=== PATIENT | female | born 1960 | race Caucasian/White ===

== ENCOUNTER 2025-03-17 12:24 | Observation (INO) ==
[2025-03-17] MEDS: LIDOCAINE 5% 1 PATCH TD STA (13:00)
[2025-03-17] MEDS: ACETAMINOPHEN 1,000 MG/100 ML VIAL IV STA (13:00)
--- NOTE | 2025-03-17 13:09 | XRay Report ---
XR chest 1V portable CLINICAL HISTORY: Trauma COMPARISON STUDY: 12/10/2022 FINDINGS: Heart size and pulmonary vasculature are normal. There is interval elevation of the right h emidiaphragm. No consolidation or pleural effusion seen. No grossly displaced rib fractures seen. Marycruz luation of the lower ribs is limited. IMPRESSION: Interval elevation of the right hemidiaphragm. No other acute findings seen. ACT 112: Negative or not required by law. Electronically signed by: Juan Ulloa M.D. 03/17/2025 1:07 PM
[2025-03-17 13:10] LABS: Hematocrit (blood only) 40.4 % (37.0-47.0); Hemoglobin 14.0 g/dL (12.0-16.0); Immature Granulocytes # (auto) 0.06 K/uL (0.01-0.20); Immature Granulocytes % (auto) 0.5 %; Mean Corpuscular Hemoglobin 31.0 pg (25.0-34.0); Mean Corpuscular Volume 89.6 fL (80.0-100.0); Platelet Count 312 K/uL (130-400); RDW Standard Deviation 44.0 fL (36.4-46.3); Red Blood Count 4.51 M/uL (4.20-5.40); White Blood Count 12.25 K/ul (4.8-10.8)
--- NOTE | 2025-03-17 13:10 | XRay Report ---
XR humerus LT 2V CLINICAL HISTORY: fall COMPARISON: None FINDINGS: There is apparent irregularity on the lateral view at the proximal humerus, possible artif act. No other fracture or dislocation seen at the left humerus. IV is present at the left elbow. IMPRESSION: 1. Likely artifact proximal left humerus. Recommend follow-up views of the left shoulder. 2. Otherwise no fracture seen at the left humerus. ACT 112: Negative or not required by law. Electronically signed by: Juan Ulloa M.D. 03/17/2025 1:09 PM
[2025-03-17] MEDS: OPTIRAY 320 100ml IV ONE (13:15)
[2025-03-17 13:29] LABS: Alanine Aminotransferase 15.0 U/L (7-52); Albumin Globulin Ratio 1.5 (0.9-2); Albumin Level 4.6 gm/dl (3.4-5.0); Alkaline Phosphatase 81.0 U/L (34-104); Anion Gap 12.0 (3-11); Bilirubin,Total 0.5 mg/dl (0.2-1.0); Blood Urea Nitrogen 21.0 mg/dl (6-23); Calcium 10.5 mg/dl (8.6-10.3); Carbon Dioxide 29.0 mmol/L (21-32); Chloride 98.0 mmol/L (98-107); Creatinine Clr Calc Pharmacy 54.3 ml/min; Globulin 3.1 gm/dl (2.5-4.0); Glucose 186.0 mg/dl (70-99(Fasting)); Lipase 24.0 U/L (11-82); Potassium 3.7 mmol/L (3.5-5.1); Sodium 139.0 mmol/L (136-145); Total Protein 7.7 gm/dl (6.0-8.3)
--- NOTE | 2025-03-17 13:39 | CT Scan Report ---
CHEST CT WITH CONTRAST CT DOSE: 2179.41 mGy.cm HISTORY: Acute chest, Trauma TECHNIQUE: Multiaxial CT images of the chest were performed following the IV administration of 94 cc of Optiray. A dose lowering technique was utilized adhering to the principles of ALARA. COMPARISON: CT abdomen and pelvis of same day, chest CT 12/10/2022 FINDINGS: Unremarkable thyroid. No lymphadenopathy. Heart is normal in size without pericardial effus ion. No thoracic aortic aneurysm. Lipomatous hypertrophy of the interatrial septum incidentally noted . Trace left pleural effusion. Punctate calcified granuloma within the left lower lobe. Mild linear s ubsegmental bibasilar atelectasis versus scarring. Mild linear scarring/fibrosis of the right lung ap ex with traction bronchiectasis is new from prior. Central airways are patent. There is a 3.4 cm hypodense focus in the lateral right breast on image 156 with probable adjacent sca rring, improved from prior. CT abdomen and pelvis dictated separately. Acute minimally displaced frac ture of the anterior left third rib. Mild sclerosis of the adjacent anterior left fourth and fifth ri bs. No suspicious bone lesions. 30% anterosuperior compression deformity without retropulsion at T9 i s new from prior as is minimal superior endplate compression of less than 20% fat T11. Mild chronic T 4 and T5 compression deformities. IMPRESSION: 1. Acute 30% T9 compression deformity without retropulsion. 2. Acute minimally displaced fracture of the anterior left third rib with probable additional acute n ondisplaced anterior left fourth and fifth rib fractures. 3. Trace left pleural effusion without pneumothorax. 4. Decreased size of the probable seroma of the right breast. 5. Interval development of right upper lobe postradiation fibrosis with mild bronchiectasis. ACT 112: Negative or not required by law. Electronically signed by: Elpidio Mcclendon M.D. 03/17/2025 1:37 PM
--- NOTE | 2025-03-17 13:40 | CT Scan Report ---
CT SCAN OF THE ABDOMEN AND PELVIS WITH IV CONTRAST CLINICAL HISTORY: Trauma. COMPARISON STUDY: No priors. TECHNIQUE: Following the IV administration of 94 cc of Optiray 320, CT scan of the abdomen and pelvi s is performed from the lung bases to the proximal femora. Images are reviewed in the axial, sagittal , and coronal planes. IV contrast was administered without complication. A dose lowering technique wa s utilized adhering to the principles of ALARA. FINDINGS: Lung bases: The heart is normal in size and without pericardial effusion. There is mild bibasilar sca rring/atelectasis. No airspace consolidation before meals the lung bases. There is trace left pleural effusion. Postsurgical change is suggested in the right breast with a crescentic fluid collection ty pical for seroma. This is best seen on image #20 and measures approximately 7.5 x 2 cm in axial dimen armand. A small hiatal hernia is noted. Liver: The contrast-enhanced liver is normal in size, contour, and attenuation. There is no intrahepa tic biliary ductal dilatation. The hepatic veins and portal veins are patent. Gallbladder: Unremarkable. Spleen: Normal in size and attenuation. Pancreas: Moderately atrophic and grossly unremarkable. Adrenal glands: Unremarkable. Kidneys: The contrast enhanced kidneys are normal in size and without hydronephrosis. The kidneys enh ance symmetrically. There are at least 3 nonobstructing renal calculi which measure up to 4 mm. No le ft renal calculi are seen on this contrast-enhanced examination and no ureteral stone is identified. An 11 mm cyst is noted on the right. Abdominal vasculature: The abdominal aorta is normal in course and caliber. Bowel: There is moderate constipation. No bowel obstruction is seen. The appendix is well-visualized and normal. A 10 mm duodenal lipoma is incidentally noted. Peritoneum: There is no intraperitoneal free air or abdominal ascites. There is a fat-containing umbi lical hernia. Lymphadenopathy: None. Pelvic viscera: The bladder is decompressed and grossly unremarkable. The uterus and adnexa are bhavya l as visualized. Skeletal structures: The skeletal structures are osteopenic. There is an acute superior endplate comp ression fracture of T10 with mild/moderate loss of height. No retropulsion of fragments is seen. The lumbosacral spine, bony pelvis, and proximal femora appear intact. There is avascular necrosis of the left femoral head. No lytic or blastic lesions are seen. There are chronic/healed left posterior rib fractures. There is mild lumbosacral spondylosis. IMPRESSION: 1. There is an acute superior endplate compression fracture of T10 with mild/moderate loss of height. No retropulsion of fragments is seen. 2. No additional acute fracture is identified. 3. There is no evidence of solid organ injury in the abdomen or pelvis. 4. Trace pleural fluid is seen in the left. 5. Postsurgical change is suggest in the right breast with a probable seroma. Correlate clinically. 6. There is avascular necrosis of the left femoral head. 7. Right-sided nephrolithiasis. 8. Additional findings as above. ACT 112: Negative or not required by law. Electronically signed by: Silvio Medina M.D. 03/17/2025 1:39 PM
--- NOTE | 2025-03-17 14:17 | Emergency Department Note ---
Impression & Plan Fall from standing, Compression fracture of T9 vertebra, Compression fracture of T11 vertebra, Multiple rib fractures, Hypercalcemia, Contusion of soft tissue, Musculoskeletal strain ED Provider Note NAME: ISAIAS COON AGE: 64 SEX: F : 1960 ARRIVES VIA: Walk-In INFORMANT: Patient, ED PROVIDER(S): Andrae Jung DO CHIEF COMPLAINT: fall HPI: This was not prehospital trauma/injury alert by EMS as she arrives by POV. This is a 64-year-old female with the PMHx of hypertension, hyperlipidemia, breast cancer s/p chemotherapy, DM2 and postchemotherapy pain presenting to [facility] for further evaluation of fall. Patient is accompanied by her who provide additional history. They are not on blood thinners. They deny head strike or LOC. They deny neck pain. Patient is reporting severe middle back pain. She states is mostly on the left side. Pain now radiating into her upper abdomen. They deny fever or chills. No cough or congestion. Denies chest pain or palpitations. No shortness of breath. They deny abdominal pain, nausea and vomiting. No urinary complaints. No recent changes in bowel movements. Patient denies recent changes in medications or OTC supplements. Patient offers no other complaints, today. ADDITIONAL HISTORY OBTAINED: Per HPI Chronic Medical/Social Conditions Affecting Care: Per HPI PAST MEDICAL HISTORY: See Below PAST SURGICAL HISTORY: See Below FAMILY HISTORY: See Below SOCIAL HISTORY: See Below HOME MEDICATIONS: See Below ALLERGIES: See Below VITALS: See Below PHYSICAL EXAMINATION: Primary Survey Airway: Intact Breathing: Normal, breath sounds equal bilaterally Circulation: Skin warm, distal pulses 2+, capillary refill less than 2 seconds Disability Pupils: Equal and reactive to light, 5mm, brisk GCS: 15, E = 4, V=5, M= 6 Motor Function: Moves all extremities. Sensory: No deficits Secondary Survey GEN: Well developed and well-nourished HENT: Head: No external signs of trauma. No obvious contusions, abrasions, or laceration. No raccoon eyes or gautam sign. Mouth/Throat: No blood within the oral cavity. No malocclusion. Eyes: EOMI. Pupils are 5 mm, round and reactive bilaterally. Ears: TMs are intact bilaterally. No hematomas. Nose: No nasal septal hematoma. No gross deformity. Neck: Collar deferred. No midline C-spine tenderness. No step-offs. Cardiovascular: RRR. Pulses present in all 4 extremities. Pulmonary/Chest: BS equal bilaterally. No tenderness or ecchymosis. Abdomen: No tenderness or ecchymosis. Musculoskeletal: Pelvis: No instability. Back: Lower thoracic midline tenderness. Significant TTP over the posterolateral ribs. No step-offs or deformities. Extremities: No gross deformities. L humeral TTP. Skin: No laceration. No abrasion. Neuro: No focal neurological deficits. GCS as above. Psych: Normal mood and affect. MEDICAL DECISION MAKING: Vitals: The patient is afebrile and HDS. An order was placed for continuous cardiorespiratory monitoring. I reviewed and this shows a rate of 70-80s with regular rhythm. EKG: EKG independently interpreted by me reveals normal sinus rhythm at a ventricular rate of [address] segment changes to suggest STEMI. Intervals are within normal limits. Differential diagnoses include but not limited to multi-system trauma, ICH, skull fracture, spine / spinal cord injury, fracture, dislocation, traumatic abdominal injuries, solid / visceral organ injuries, MSK sprain / strain, contusion, whiplash, concussion In summary, this is a 64yoF who presented as a fall from standing with back and rib pain. Airway intact and self maintained, breath sounds bilateral and equal along with normal effort, circulation intact with pp in 4 extremities, GCS 15 with normal speech and sensorium and DURAN. Full physical examination as above. History and secondary survey as above. Labs drawn. eFAST deferred for WBCT as the patient has readily availability for CT. Collar deferred, no head or neck trauma. Pt was not given tetanus. Initial/stabilizing treatments include IV analgesia and lidocaine patch. Imaging performed and reviewed as above. Patient was taken to the CT suite for CT CAP and dedicated plain films to the humerus. Labs were independently interpreted by me as minimal leukocytosis. No significant anemia. Patient's electrolytes and kidney function are normal. Minimal hyperglycemia. Hypercalcemia similar to prior. LFTs and lipase are normal. CXR independently interpreted by me reveals no evidence of focal consolidation to suggest pna. No large pneumothorax or pleural effusion. No obvious displaced rib fracture. she is to had some improvement in her pain from above therapeutics but again developed worsening pain. Second dose of IV fentanyl ordered. CT chest, abdomen and pelvis were obtained. The patient has multiple traumatic injuries. The patient does have acute T9 and T11 compression deformities. Less than 50% loss of height. There is no retropulsion and she is neurovascularly intact. Patient is not requiring any interventions for this fracture. T9 does appear worse than T11. I do not visualize T10 fracture denoted by radiology. There is a minimally displaced fracture of the third rib. There are nondisplaced rib fractures of the 4th and 5th on the left. This does correlate with her physical examination. Patient has no evidence of pneumothorax. There is a slight pleural effusion which is unknown etiology. Could be a very small hemothorax but favor a physiologic pleural effusion or chronic appearance. Patient requires respiratory hygiene and pain medications as an inpatient. She is high risk for decompensation. I did offer the patient outpatient management but felt that inpatient is warranted. Patient agreeable to this. The patient's complex injuries include fall from standing with T9 and T11 compression fractures as well as 3 left-sided rib fractures. Based on the patient's age, code existing illnesses, exam and lab findings, the decision to treat as an inpatient was made. They received the medications, treatments, interventions indicated above and their condition remained guarded. I discussed my findings with the patient and their family[] and they understand and agree with the treatment plan. All patient / family questions were answered to their satisfaction. Consults/Care Managements Discussions: Per [facility] ER treatment provided: See above Procedures: None Critical Care: None The chart was completed utilizing [employer] Speech voice recognition software. Grammatical errors, random word insertions, pronoun errors, and incomplete sentences are an occasional consequence of this system due to software limitations, ambient noise, and hardware issues. Any formal questions or concerns about the content, text, or information contained within the body of this dictation should be directly addressed to the physician for clarification. Past Med/Surg History Problem List (Updated 03/17/25 @ 14:58 by Andrae Jung DO) Musculoskeletal strain (Acute) Contusion of soft tissue (Acute) Hypercalcemia (Acute) Multiple rib fractures (Acute) Compression fracture of T11 vertebra (Acute) Compression fracture of T9 vertebra (Acute) Fall from standing (Acute) Wedge compression fracture of T9-T10 vertebra, initial encounter for closed fracture Fall Malignant neoplasm of upper-outer quadrant of right breast in female, estrogen receptor positive (Chronic 02/21/22) Neuropathy Medical History Port-A-Cath in place Hypertension Hyperchloremia Diabetes mellitus Surgical History History of partial mastectomy of right breast Previous back surgery 2012 Dr. Doyle Family History Aunt Cancer Breast Social History Smoking Status: Never smoker Second Hand Exposure: No; Hx Alcohol Use: No Hx Substance Use: No Preferred Language: Mexican Communication Ability: Effective Visual Impairment: Limited Hearing Ability: Normal Beliefs That Will Affect Care: None marital status: Current Living Situation: Spouse current occupational status: retired current occupation: [employer] Feels Safe at Home: Yes Diet: regular during the past year weight has: decreased > 10 lbs Assistive Devices: Contacts, Denture - Upper and Glasses Allergies Allergies Allergy/AdvReac Type Severity Reaction Status Date / Time chlorhexidine Allergy Intermediate SKIN Verified 01/01/25 10:44 IRRITATION/RED BUMPY RASH sulfamethoxazole Allergy Intermediate Rash Verified 01/01/25 10:44 [From Bactrim] trimethoprim [From Bactrim] Allergy Intermediate Rash Verified 01/01/25 10:44 Home Meds Home Medications Medication Instructions Recorded Confirmed cholecalciferol (vitamin D3) 50 50 mcg PO QAM 12/10/22 01/01/25 mcg (2,000 unit) capsule (Vitamin D3) gabapentin 300 mg capsule 600 mg PO QID 12/10/22 01/01/25 letrozole 2.5 mg tablet 2.5 mg PO QAM 12/10/22 01/01/25 lisinopril 10 1 tab PO HS 12/10/22 01/01/25 mg-hydrochlorothiazide 12.5 mg tablet loratadine 10 mg tablet (Claritin) 10 mg PO HS 12/10/22 01/01/25 metformin 500 mg tablet,extended 500 mg PO BID 12/10/22 01/01/25 release 24 hr pseudoephedrine HCl 120 mg 120 mg PO HS 12/10/22 01/01/25 tablet,extended release (Sudafed 12 Hour) calcium carbonate (Calcium 600) 600 mg PO DAILY 02/04/23 01/01/25 acetaminophen 500 mg capsule 1,000 mg PO TID PRN 02/11/23 01/01/25 tramadol 50 mg tablet 50 mg PO Q8H PRN 06/07/23 01/01/25 aspirin 81 mg tablet,delayed 81 mg PO DAILY 12/27/23 01/01/25 release (Adult Aspirin Regimen) atorvastatin 20 mg tablet 20 mg PO QPM 12/27/23 01/01/25 duloxetine 20 mg capsule,delayed 40 mg PO DAILY 12/27/23 01/01/25 release Results & Data (ED) Vital Signs Vital Signs - 24 hr 03/17/25 12:28 03/17/25 13:02 03/17/25 14:19 Pulse Rate 81 Pulse Rate [Finger] 74 Respiratory Rate 20 16 20 Respiratory Effort / Characteristics Non-Labored Spontaneous Respiratory Depth Normal Blood Pressure 118/81 Blood Pressure [Right Arm] 119/76 Blood Pressure Mean 93 Blood Pressure Mean [Right Arm] 90 Pulse Oximetry 97 98 93 Oxygen Delivery Method Room Air Room Air Room Air Sepsis Recent Fever Within 48 Hours No Sepsis New/Unexplained Change in Mental Status N/A Sepsis Action Taken by Nursing No Action Required Laboratory Data 03/17/25 12:53 03/17/25 12:53 Lab Results 03/17/25 03/17/25 Range/Units 12:53 12:58 WBC 12.25 H (4.8-10.8) K/ul RBC 4.51 (4.20-5.40) M/uL Hgb 14.0 (12.0-16.0) g/dL POC Hgb 14.3 (12.0-16.0) g/dl Hct 40.4 (37.0-47.0) % POC Hct 42 (37-47) % MCV 89.6 (80.0-100.0) fL MCH 31.0 (25.0-34.0) pg MCHC 34.7 (32.0-36.0) g/dL RDW Std Deviation 44.0 (36.4-46.3) fL RDW Coeff of Hector 13.5 (11.5-14.5) % Plt Count 312 (130-400) K/uL MPV 10.1 (9.4-12.4) fL Immature Gran % (Auto) 0.5 % Neut % (Auto) 80.1 % Lymph % (Auto) 11.4 % Edwards % (Auto) 6.5 % Eos % (Auto) 1.0 % Baso % (Auto) 0.5 % Neut # (Auto) 9.81 H (1.40-6.50) K/uL Lymph # (Auto) 1.40 (1.20-3.40) K/uL Edwards # (Auto) 0.80 H (0.11-0.59) K/uL Eos # (Auto) 0.12 (0.00-0.50) K/uL Baso # (Auto) 0.06 (0.00-0.20) K/uL Immature Gran # (Auto) 0.06 (0.01-0.20) K/uL POC Sodium 140 (135-144) mmol/L Sodium 139 (136-145) mmol/L POC Potassium 3.6 (3.3-5.0) mmol/L Potassium 3.7 (3.5-5.1) mmol/L POC Chloride 97 L (101-112) mmol/L Chloride 98 (98-107) mmol/L Carbon Dioxide 29 (21-32) mmol/L POC Total CO2 26 (24-31) mmol/L Anion Gap 12 H (3-11) POC Anion Gap 21.0 (16-25) mmol/L POC BUN 22 H (7-18) mg/dl BUN 21 (6-23) mg/dl Creatinine 1.00 (0.6-1.2) mg/dl POC Creatinine 1.0 (0.6-1.3) mg/dl Est Cr Clr Drug Dosing 54.3 ml/min eGFR 62.13 BUN/Creatinine Ratio 21.0 H (10-20) Glucose 186 H (70-99(Fasting)) mg/dl POC Glucose (other) 180 H (70-99) mg/dl Calcium 10.5 H (8.6-10.3) mg/dl POC Ioniz Calcium Ingrid 1.21 (1.12-1.32) mmol/l Total Bilirubin 0.5 (0.2-1.0) mg/dl AST 14 (13-39) U/L ALT 15 (7-52) U/L Alkaline Phosphatase 81 (34-104) U/L Total Protein 7.7 (6.0-8.3) gm/dl Albumin 4.6 (3.4-5.0) gm/dl Globulin 3.1 (2.5-4.0) gm/dl Albumin/Globulin Ratio 1.5 (0.9-2) Lipase 24 (11-82) U/L Administered Medications Discontinued Medications Fentanyl Citrate (Fentanyl Citrate Pf 100 Mcg/2 Ml Vial) 50 mcg IV NOW ONE Stop: 03/17/25 12:41 Last Admin: 03/17/25 13:00 Dose: 50 mcg Documented By: QGV Fentanyl Citrate (Fentanyl Citrate Pf 100 Mcg/2 Ml Vial) 50 mcg IV NOW ONE Stop: 03/17/25 14:09 Last Admin: 03/17/25 14:18 Dose: 50 mcg Documented By: ALINA Acetaminophen (Ofirmev) 1,000 mg in 100 mls @ 400 mls/hr IV NOW STA Stop: 03/17/25 12:54 Last Infusion: 03/17/25 13:48 Dose: Infused Documented By: Admin: 03/17/25 13:00 Dose: 400 mls/hr Documented By: QGV Ioversol (Optiray 320 100ml) 94 ml IV ONCE ONE Stop: 03/17/25 13:16 Last Admin: 03/17/25 13:15 Dose: 94 ml Documented By: LONDON Lidocaine (Lidocaine 5% 1 Patch) 1 patch TD NOW STA Stop: 03/17/25 12:41 Last Admin: 03/17/25 13:00 Dose: 1 patch Documented By: QGV Imaging Data Radiologist's Impression: Abdomen/Pelvis CT 03/17/25 12:40 CT SCAN OF THE ABDOMEN AND PELVIS WITH IV CONTRAST CLINICAL HISTORY: Trauma. COMPARISON STUDY: No priors. TECHNIQUE: Following the IV administration of 94 cc of Optiray 320, CT scan of the abdomen and pelvis is performed from the lung bases to the proximal femora. Images are reviewed in the axial, sagittal, and coronal planes. IV contrast was administered without complication. A dose lowering technique was utilized adhering to the principles of ALARA. FINDINGS: Lung bases: The heart is normal in size and without pericardial effusion. There is mild bibasilar scarring/atelectasis. No airspace consolidation before meals the lung bases. There is trace left pleural effusion. Postsurgical change is suggested in the right breast with a crescentic fluid collection typical for seroma. This is best seen on image #20 and measures approximately 7.5 x 2 cm in axial dimension. A small hiatal hernia is noted. Liver: The contrast-enhanced liver is normal in size, contour, and attenuation. There is no intrahepatic biliary ductal dilatation. The hepatic veins and portal veins are patent. Gallbladder: Unremarkable. Spleen: Normal in size and attenuation. Pancreas: Moderately atrophic and grossly unremarkable. Adrenal glands: Unremarkable. Kidneys: The contrast enhanced kidneys are normal in size and without hydronephrosis. The kidneys enhance symmetrically. There are at least 3 nonobstructing renal calculi which measure up to 4 mm. No left renal calculi are seen on this contrast-enhanced examination and no ureteral stone is identified. An 11 mm cyst is noted on the right. Abdominal vasculature: The abdominal aorta is normal in course and caliber. Bowel: There is moderate constipation. No bowel obstruction is seen. The appendix is well-visualized and normal. A 10 mm duodenal lipoma is incidentally noted. Peritoneum: There is no intraperitoneal free air or abdominal ascites. There is a fat-containing umbilical hernia. Lymphadenopathy: None. Pelvic viscera: The bladder is decompressed and grossly unremarkable. The uterus and adnexa are normal as visualized. Skeletal structures: The skeletal structures are osteopenic. There is an acute superior endplate compression fracture of T10 with mild/moderate loss of height. No retropulsion of fragments is seen. The lumbosacral spine, bony pelvis, and proximal femora appear intact. There is avascular necrosis of the left femoral head. No lytic or blastic lesions are seen. There are chronic/healed left posterior rib fractures. There is mild lumbosacral spondylosis. IMPRESSION: 1. There is an acute superior endplate compression fracture of T10 with mild/moderate loss of height. No retropulsion of fragments is seen. 2. No additional acute fracture is identified. 3. There is no evidence of solid organ injury in the abdomen or pelvis. 4. Trace pleural fluid is seen in the left. 5. Postsurgical change is suggest in the right breast with a probable seroma. Correlate clinically. 6. There is avascular necrosis of the left femoral head. 7. Right-sided nephrolithiasis. 8. Additional findings as above. ACT 112: Negative or not required by law. Electronically signed by: Silvio Medina M.D. 03/17/2025 1:[address] 03/17/25 12:[address] WITH CONTRAST CT DOSE: 2179.41 mGy.cm HISTORY: Acute chest, Trauma TECHNIQUE: Multiaxial CT images of the chest were performed following the IV administration of 94 cc of Optiray. A dose lowering technique was utilized adhering to the principles of ALARA. COMPARISON: CT abdomen and pelvis of same day, chest CT 12/10/2022 FINDINGS: Unremarkable thyroid. No lymphadenopathy. Heart is normal in size without pericardial effusion. No thoracic aortic aneurysm. Lipomatous hypertrophy of the interatrial septum incidentally noted. Trace left pleural effusion. Punctate calcified granuloma within the left lower lobe. Mild linear subsegmental bibasilar atelectasis versus scarring. Mild linear scarring/fibrosis of the right lung apex with traction bronchiectasis is new from prior. Central airways are patent. There is a 3.4 cm hypodense focus in the lateral right breast on image 156 with probable adjacent scarring, improved from prior. CT abdomen and pelvis dictated separately. Acute minimally displaced fracture of the anterior left third rib. Mild sclerosis of the adjacent anterior left fourth and fifth ribs. No suspicious bone lesions. 30% anterosuperior compression deformity without retropulsion at T9 is new from prior as is minimal superior endplate compression of less than 20% fat T11. Mild chronic T4 and T5 compression deformities. IMPRESSION: 1. Acute 30% T9 compression deformity without retropulsion. 2. Acute minimally displaced fracture of the anterior left third rib with probable additional acute nondisplaced anterior left fourth and fifth rib fractures. 3. Trace left pleural effusion without pneumothorax. 4. Decreased size of the probable seroma of the right breast. 5. Interval development of right upper lobe postradiation fibrosis with mild bronchiectasis. ACT 112: Negative or not required by law. Electronically signed by: Elpidio Mcclendon M.D. 03/17/2025 1:37 PM Chest X-Ray 03/17/25 12:40 XR chest 1V portable CLINICAL HISTORY: Trauma COMPARISON STUDY: 12/10/2022 FINDINGS: Heart size and pulmonary vasculature are normal. There is interval elevation of the right hemidiaphragm. No consolidation or pleural effusion seen. No grossly displaced rib fractures seen. Evaluation of the lower ribs is limited. IMPRESSION: Interval elevation of the right hemidiaphragm. No other acute findings seen. ACT 112: Negative or not required by law. Electronically signed by: Juan Ulloa M.D. 03/17/2025 1:07 PM Humerus X-Ray 03/17/25 12:40 XR humerus LT 2V CLINICAL HISTORY: fall COMPARISON: None FINDINGS: There is apparent irregularity on the lateral view at the proximal humerus, possible artifact. No other fracture or dislocation seen at the left humerus. IV is present at the left elbow. IMPRESSION: 1. Likely artifact proximal left humerus. Recommend follow-up views of the left shoulder. 2. Otherwise no fracture seen at the left humerus. ACT 112: Negative or not required by law. Electronically signed by: Juan Ulloa M.D. 03/17/2025 1:09 PM Discharge Plan Visit Data Chief Complaint: Fall Stated Complaint: FALL IN PAIN ED Provider: Andrae Jung Discharge Problem: Fall from standing, Compression fracture of T9 vertebra, Compression fracture of T11 vertebra, Multiple rib fractures, Hypercalcemia, Contusion of soft tissue, Musculoskeletal strain Patient Disposition: Admitted As Inpatient Condition: Fair Forms Stand Alone Forms: My [facility] Prescriptions Prescriptions: No Action tramadol 50 mg tablet 50 mg PO Q8H PRN calcium carbonate [Calcium 600] 600 mg calcium (1,500 mg) tablet 600 mg PO DAILY acetaminophen 500 mg capsule 1,000 mg PO TID PRN atorvastatin 20 mg tablet 20 mg PO QPM aspirin [Adult Aspirin Regimen] 81 mg tablet,delayed release (DR/EC) 81 mg PO DAILY duloxetine 20 mg capsule,delayed release(DR/EC) 40 mg PO DAILY pseudoephedrine HCl [Sudafed 12 Hour] 120 mg Tablet Extended Release 120 mg PO HS gabapentin 300 mg capsule 600 mg PO QID lisinopril-hydrochlorothiazide 10-12.5 mg tablet 1 tab PO HS letrozole 2.5 mg tablet 2.5 mg PO QAM metformin 500 mg Tablet Extended Release 24 Hr 500 mg PO BID loratadine [Claritin] 10 mg Tablet 10 mg PO HS cholecalciferol (vitamin D3) [Vitamin D3] 50 mcg (2,000 unit) Capsule 50 mcg PO QAM Referrals Referrals: Lidia Mast, [Primary Care Provider] -
--- NOTE | 2025-03-17 14:39 | History & Physical Report ---
Date of Service March 17, 2025 Assessment & Plan (1) Fall: (2) Wedge compression fracture of T9-T10 vertebra, initial encounter for closed fracture: (3) Malignant neoplasm of upper-outer quadrant of right breast in female, estrogen receptor positive: (4) Diabetes mellitus: (5) Hypertension: Plan Patient has a history of neuropathy following chemotherapy and radiation therapy from her breast cancer treatment. Presents to the hospital following a mechanical fall. 1. T9-T10 compression fracture: Patient sustained nondisplaced fracture of T9-T10 Likely not going to need any surgical intervention however may need a brace Will defer to spine surgery Continue pain management, lidocaine patch, morphine, Tylenol Physical therapy 2. Breast cancer: Status post chemoradiation therapy Estrogen sensitive Continue letrozole 3. Hypertension: Blood pressure is under good control At home on lisinopril and hydrochlorothiazide Continue. 4. Type 2 diabetes: Blood glucose under good control On metformin at home, hold Start insulin sliding scale Full code DVT prophylaxis Lovenox History of Present Illness Chief Complaint: Fall Primary Care Provider: Lidia Mast, This is a 64-year-old female with a history of breast cancer status post chemoradiation therapy, neuropathy, hypertension, diabetes, who presents to the hospital today following a fall. According to the patient, due to her neuropathy she had some loss of sensation on her legs and yesterday was trying to fish bait picker her 22 pound dog she lost her balance and bumped into the kitchen counter on her back and fell on her buttocks. She experienced some pain but thought the pain was going to go away however the pain got worse so she decided to come to the hospital today for further evaluation. Upon arrival to the emergency department, CT scan of the chest and abdomen showed evidence of a compression fracture of T9 and T10 and also some rib fractures on the left side. Due to need for pain control patient will be admitted to the hospital for further management. Allergies Allergy/AdvReac Type Severity Reaction Status Date / Time chlorhexidine Allergy Intermediate SKIN Verified 01/01/25 10:44 IRRITATION/RED BUMPY RASH sulfamethoxazole Allergy Intermediate Rash Verified 01/01/25 10:44 [From Bactrim] trimethoprim [From Bactrim] Allergy Intermediate Rash Verified 01/01/25 10:44 Home Medications Medication Instructions Recorded Confirmed Type cholecalciferol (vitamin D3) 50 50 mcg PO QAM 12/10/22 01/01/25 History mcg (2,000 unit) capsule (Vitamin D3) gabapentin 300 mg capsule 600 mg PO QID 12/10/22 01/01/25 History letrozole 2.5 mg tablet 2.5 mg PO QAM 12/10/22 01/01/25 History lisinopril 10 1 tab PO HS 12/10/22 01/01/25 History mg-hydrochlorothiazide 12.5 mg tablet loratadine 10 mg tablet (Claritin) 10 mg PO HS 12/10/22 01/01/25 History metformin 500 mg tablet,extended 500 mg PO BID 12/10/22 01/01/25 History release 24 hr pseudoephedrine HCl 120 mg 120 mg PO HS 12/10/22 01/01/25 History tablet,extended release (Sudafed 12 Hour) calcium carbonate (Calcium 600) 600 mg PO DAILY 02/04/23 01/01/25 History acetaminophen 500 mg capsule 1,000 mg PO TID PRN 02/11/23 01/01/25 History tramadol 50 mg tablet 50 mg PO Q8H PRN 06/07/23 01/01/25 History aspirin 81 mg tablet,delayed 81 mg PO DAILY 12/27/23 01/01/25 History release (Adult Aspirin Regimen) atorvastatin 20 mg tablet 20 mg PO QPM 12/27/23 01/01/25 History duloxetine 20 mg capsule,delayed 40 mg PO DAILY 12/27/23 01/01/25 History release Past Med/Surg History Problem List (Updated 03/17/25 @ 14:36 by Antwan Aguillon MD) Wedge compression fracture of T9-T10 vertebra, initial encounter for closed fracture Fall Malignant neoplasm of upper-outer quadrant of right breast in female, estrogen receptor positive (Chronic 02/21/22) Neuropathy Medical History (Updated 03/17/25 @ 14:36 by Antwan Aguillon MD) Port-A-Cath in place Hypertension Hyperchloremia Diabetes mellitus Surgical History (Updated 12/11/22 @ 09:49 by Tere Lawrence, RANDY) History of partial mastectomy of right breast Previous back surgery 2012 Dr. Doyle Family History (Updated 12/11/22 @ 09:50 by Tere Lawrence, RANDY) Aunt Cancer Breast Social History (Updated 12/11/22 @ 09:53 by Tere Lawrence RN) Smoking Status: Never smoker Second Hand Exposure: No; Hx Alcohol Use: No Hx Substance Use: No Preferred Language: Maltese Communication Ability: Effective Visual Impairment: Limited Hearing Ability: Normal Beliefs That Will Affect Care: None marital status: Current Living Situation: Spouse current occupational status: retired current occupation: SPEECH LANGUAGE ASSISTANT Feels Safe at Home: Yes Diet: regular during the past year weight has: decreased > 10 lbs Assistive Devices: Contacts, Denture - Upper and Glasses Review of Systems Review of Systems: All systems reviewed are negative, apart from the ones contained in the history. Physical Exam Physical Exam: The patient is awake, alert and oriented 3, well developed and well nourished, normocephalic and atraumatic, lying in bed and in no acute distress. HEENT--PERRL, EOMI, mucous membranes and oropharynx mildly dry Neck--supple. No JVD. No bruits. Thyroid normal, trachea midline, no adenopathy. Heart--normal S1 and S2. No murmurs, rubs or gallops. Lungs--clear bilaterally, no respiratory distress, no accessory muscle use. Abdomen--normal bowel sounds and soft. Extremities--no cyanosis or clubbing. No edema. Dermatologic--normal skin turgor, normal color, no abnormal lymph nodes, no rash. Neurologic--cranial nerves II through XII grossly intact. Rheumatologic--normal range of motion. Psychiatric--normal affect. Results & Data Results & Data Vital Signs (Past 12 Hours) Vital Signs Pulse Pulse Resp BP BP Pulse Ox O2 Del Method 03/17/25 14:19 74 20 119/76 93 Room Air 03/17/25 13:02 16 98 Room Air 03/17/25 12:28 81 20 118/81 97 Room Air Code Status & VTE Plan VTE Prophylaxis Plan VTE Prophylaxis will be ordered: Yes PG Care Time/CCT Total # of Minutes Spent Total Time Spent with Patient: Total time spent is greater than 50% in coordination of care (as documented) at patient's floor/unit and/or counseling patient: Coding Level of Care Code 46578 INT INP/OBS CARE 2/55MIN Diagnoses Fall W19.XXXA Wedge compression fracture of T9-T10 vertebra, initial encounter for closed fracture S22.070A Malignant neoplasm of upper-outer quadrant of right breast in female, estrogen receptor positive C50.411; Z17.0 Diabetes mellitus E11.9 Hypertension I10 Time Spent (min) 55
[2025-03-17 15:09] LABS: INR 1.0 (0.9-1.1); Partial Thromboplastin Time 24 Seconds (21-31); Prothrombin Time 10.4 Seconds (9.0-12.0)
[2025-03-17] MEDS ORDERED: ACETAMINOPHEN 325 MG TAB PO PRN (17:54)
[2025-03-17] MEDS: INSULIN ASPART PER UNIT CHARGE SC SCH (18:11)
[2025-03-17] MEDS: GABAPENTIN 300 MG CAP PO SCH (19:34)
[2025-03-17] MEDS: ENOXAPARIN INJ 40 MG/0.4 ML SYR SQ SCH (19:34)
[2025-03-17] MEDS: MoRPHine SULFATE 2 MG/ML CARP IV PRN (19:39)
[2025-03-17] MEDS: ATORVASTATIN 20 MG TAB PO SCH (21:01)
[2025-03-17] MEDS: REMOVE LIDODERM PATCH SCH (21:02)
--- NOTE | 2025-03-17 21:57 | Electrocardiogram Report ---
Test Reason : Blood Pressure : */* mmHG Vent. Rate : 84 BPM Atrial Rate : 84 BPM P-R Int : 156 ms QRS Dur : 78 ms QT Int : 374 ms P-R-T Axes : 32 19 5 degrees QTcB Int : 441 ms Normal sinus rhythm Nonspecific T wave abnormality When compared with ECG of 10-Dec-2022 15:17, No significant change was found Confirmed by Bruce Olson ([id number]) on 03/17/2025 9:57:36 PM Referred By: Confirmed By: Bruce Olson
[2025-03-17 22:30] VITALS: RESP 18
[2025-03-17] MEDS: ACETAMINOPHEN 500 MG TAB PO SCH (23:09)
[2025-03-18 08:09] VITALS: BP 120/80; PULSE 87; TEMP 97.6; O2SAT 95
[2025-03-18] MEDS: LETROZOLE 2.5 MG TAB PO SCH (08:20)
--- NOTE | 2025-03-18 08:27 | Consultation ---
Date of Consultation March 18, 2025 Assessment & Plan (1) Wedge compression fracture of T9-T10 vertebra, initial encounter for closed fracture: Isaias is a 64-year-old female who presents 2 days status post fall with T9 and T11 superior endplate compression fractures. We will treat this conservatively. I would not recommend bracing/TLSO in light of her rib fractures. Work on incentive spirometry. Continue with pain control. Ambulate ad siael. No lifting over 5 pounds. Will sign off. She can follow-up in our office in about 2 weeks History of Present Illness Reason for Consultation: Thoracic compression fractures Attending Physician: Antwan Aguillon MD History of Present Illness Is a very pleasant 64-year-old female who sustained a fall 2 days ago. She was picking up her dog lost her balance and fell backward hitting the counter and then landing on her bottom. She lives with her . She was able to get up on her own. Pain was so severe she came to the ER yesterday for subsequent admission. Still struggling with lower thoracic pain rating to the left side and abdomen. Typically at home she ambulates independently. Allergies Allergy/AdvReac Type Severity Reaction Status Date / Time chlorhexidine Allergy Intermediate SKIN Verified 01/01/25 10:44 IRRITATION/RED BUMPY RASH sulfamethoxazole Allergy Intermediate Rash Verified 01/01/25 10:44 [From Bactrim] trimethoprim [From Bactrim] Allergy Intermediate Rash Verified 01/01/25 10:44 Home Medications Medication Instructions Recorded Confirmed Type cholecalciferol (vitamin D3) 50 50 mcg PO QAM 12/10/22 03/17/25 History mcg (2,000 unit) capsule (Vitamin D3) gabapentin 300 mg capsule 600 mg PO QID 12/10/22 03/17/25 History letrozole 2.5 mg tablet 2.5 mg PO QAM 12/10/22 03/17/25 History lisinopril 10 1 tab PO HS 12/10/22 03/17/25 History mg-hydrochlorothiazide 12.5 mg tablet loratadine 10 mg tablet (Claritin) 10 mg PO HS 12/10/22 03/17/25 History metformin 500 mg tablet,extended 1,000 mg PO BID 12/10/22 03/17/25 History release 24 hr pseudoephedrine HCl 120 mg 120 mg PO HS 12/10/22 03/17/25 History tablet,extended release (Sudafed 12 Hour) calcium carbonate (Calcium 600) 600 mg PO DAILY 02/04/23 03/17/25 History acetaminophen 500 mg capsule 1,000 mg PO TID PRN Pain 02/11/23 03/17/25 History tramadol 50 mg tablet 50 mg PO Q8H PRN Pain 06/07/23 03/17/25 History aspirin 81 mg tablet,delayed 81 mg PO DAILY 12/27/23 03/17/25 History release (Adult Aspirin Regimen) atorvastatin 20 mg tablet 20 mg PO QPM 12/27/23 03/17/25 History duloxetine 20 mg capsule,delayed 60 mg PO DAILY 12/27/23 03/17/25 History release Patient History Medical History Port-A-Cath in place Hypertension Hyperchloremia Diabetes mellitus Surgical History History of partial mastectomy of right breast Previous back surgery 2012 Dr. Doyle Family History Aunt Cancer Breast Social History Smoking Status: Never smoker Tobacco Type: Declines Second Hand Exposure: No; Do You Dip or Chew Tobacco: No; Hx Alcohol Use: No Hx Substance Use: No Preferred Language: Mosotho Communication Ability: Effective Visual Impairment: Limited Hearing Ability: Normal Operations Administrative Assistant Required: No Beliefs That Will Affect Care: None marital status: Current Living Situation: Spouse current occupational status: retired current occupation: SENIOR SYSTEM OPERATOR Feels Safe at Home: Yes Diet: regular during the past year weight has: decreased > 10 lbs Assistive Devices: None Review of Systems Review of Systems: All systems reviewed & are unremarkable except as noted in HPI & below Physical Exam Physical Exam: She is seen in her room Alert and oriented x 3 no acute distress Strength intact bilateral lower extremities tenderness to palpation of the midline lower thoracic region And paravertebral musculature on the left lower thoracic area Results & Data Vital Signs (Past 12 Hours) Vital Signs Temp Pulse Resp BP Pulse Ox O2 Del Method 03/18/25 08:07 36.4 C 87 18 120/80 95 Room Air Diagnostic Findings [place], [place] [phone] CT Scan Report Patient: ISAIAS COON Admit Date: 03/17/25 MR#: [id number] Address1: [address] [facility] Acct ID:[id number] Address2: Date: 1960 [facility] Zip: [place] [address] Age: 64 Location: ED Sex: F Room/Bed: Att Phy: Diagnosis: FALL IN PAIN Opal Phy: Lidia Mast DO Service Date: 03/17/25 Fam Phy: Interpreting Phy: Silvio Medina MDAdmit Phy: Ordering Phy: Andrae Jung DO cc: ~ CT SCAN OF THE ABDOMEN AND PELVIS WITH IV CONTRAST CLINICAL HISTORY: Trauma. COMPARISON STUDY: No priors. TECHNIQUE: Following the IV administration of 94 cc of Optiray 320, CT scan of the abdomen and pelvis is performed from the lung bases to the proximal femora. Images are reviewed in the axial, sagittal, and coronal planes. IV contrast was administered without complication. A dose lowering technique was utilized adhering to the principles of ALARA. FINDINGS: Lung bases: The heart is normal in size and without pericardial effusion. There is mild bibasilar scarring/atelectasis. No airspace consolidation before meals the lung bases. There is trace left pleural effusion. Postsurgical change is suggested in the right breast with a crescentic fluid collection typical for seroma. This is best seen on image #20 and measures approximately 7.5 x 2 cm in axial dimension. A small hiatal hernia is noted. Liver: The contrast-enhanced liver is normal in size, contour, and attenuation. There is no intrahepatic biliary ductal dilatation. The hepatic veins and portal veins are patent. Gallbladder: Unremarkable. Spleen: Normal in size and attenuation. Pancreas: Moderately atrophic and grossly unremarkable. Adrenal glands: Unremarkable. Kidneys: The contrast enhanced kidneys are normal in size and without hydronephrosis. The kidneys enhance symmetrically. There are at least 3 nonobstructing renal calculi which measure up to 4 mm. No left renal calculi are seen on this contrast-enhanced examination and no ureteral stone is identified. An 11 mm cyst is noted on the right. Abdominal vasculature: The abdominal aorta is normal in course and caliber. Bowel: There is moderate constipation. No bowel obstruction is seen. The appendix is well-visualized and normal. A 10 mm duodenal lipoma is incidentally noted. Peritoneum: There is no intraperitoneal free air or abdominal ascites. There is a fat-containing umbilical hernia. Lymphadenopathy: None. Pelvic viscera: The bladder is decompressed and grossly unremarkable. The uterus and adnexa are normal as visualized. Skeletal structures: The skeletal structures are osteopenic. There is an acute superior endplate compression fracture of T10 with mild/moderate loss of height. No retropulsion of fragments is seen. The lumbosacral spine, bony pelvis, and proximal femora appear intact. There is avascular necrosis of the left femoral head. No lytic or blastic lesions are seen. There are chronic/healed left posterior rib fractures. There is mild lumbosacral spondylosis. IMPRESSION: 1. There is an acute superior endplate compression fracture of T10 with mild/moderate loss of height. No retropulsion of fragments is seen. 2. No additional acute fracture is identified. 3. There is no evidence of solid organ injury in the abdomen or pelvis. 4. Trace pleural fluid is seen in the left. 5. Postsurgical change is suggest in the right breast with a probable seroma. Correlate clinically. 6. There is avascular necrosis of the left femoral head. 7. Right-sided nephrolithiasis. 8. Additional findings as above. ACT 112: Negative or not required by law. Electronically signed by: Silvio Medina M.D. 03/17/2025 1:39 PM Dictated: 03/17/25 1329 Transcribed: 03/17/25 1329 [place], [place] [phone] CT Scan Report Patient: ISAIAS COON Admit Date: 03/17/25 MR#: [id number] Address1: [id number] [place] [address] Acct ID:[id number] Address2: Date: 1960 [facility] Zip: [place] [address] Age: 64 Location: ED Sex: F Room/Bed: Att Phy: Diagnosis: FALL IN PAIN Opal Phy: Lidia Mast DO Service Date: 03/17/25 Fam Phy: Interpreting Phy: Elpidio McclendonAdmit Phy: Ordering Phy: Andrae Jung DO cc: ~ CHEST CT WITH CONTRAST CT DOSE: 2179.41 mGy.cm HISTORY: Acute chest, Trauma TECHNIQUE: Multiaxial CT images of the chest were performed following the IV administration of 94 cc of Optiray. A dose lowering technique was utilized adhering to the principles of ALARA. COMPARISON: CT abdomen and pelvis of same day, chest CT 12/10/2022 FINDINGS: Unremarkable thyroid. No lymphadenopathy. Heart is normal in size without pericardial effusion. No thoracic aortic aneurysm. Lipomatous hypertrophy of the interatrial septum incidentally noted. Trace left pleural effusion. Punctate calcified granuloma within the left lower lobe. Mild linear subsegmental bibasilar atelectasis versus scarring. Mild linear scarring/fibrosis of the right lung apex with traction bronchiectasis is new from prior. Central airways are patent. There is a 3.4 cm hypodense focus in the lateral right breast on image 156 with probable adjacent scarring, improved from prior. CT abdomen and pelvis dictated separately. Acute minimally displaced fracture of the anterior left third rib. Mild sclerosis of the adjacent anterior left fourth and fifth ribs. No suspicious bone lesions. 30% anterosuperior compression deformity without retropulsion at T9 is new from prior as is minimal superior endplate compression of less than 20% fat T11. Mild chronic T4 and T5 compression deformities. IMPRESSION: 1. Acute 30% T9 compression deformity without retropulsion. 2. Acute minimally displaced fracture of the anterior left third rib with probable additional acute nondisplaced anterior left fourth and fifth rib fractures. 3. Trace left pleural effusion without pneumothorax. 4. Decreased size of the probable seroma of the right breast. 5. Interval development of right upper lobe postradiation fibrosis with mild bronchiectasis. ACT 112: Negative or not required by law. Electronically signed by: Elpidio Mcclendon M.D. 03/17/2025 1:37 PM Dictated: 03/17/25 132 Transcribed: 03/17/251326 Document Auto-Saved
--- NOTE | 2025-03-18 09:41 | Discharge Summary ---
Date of Service March 18, 2025 Admission HPI Per Admitting Provider This is a 64-year-old female with a history of breast cancer status post chemoradiation therapy, neuropathy, hypertension, diabetes, who presents to the hospital today following a fall. According to the patient, due to her neuropathy she had some loss of sensation on her legs and yesterday was trying to olive picker her 22 pound dog she lost her balance and bumped into the kitchen counter on her back and fell on her buttocks. She experienced some pain but thought the pain was going to go away however the pain got worse so she decided to come to the hospital today for further evaluation. Upon arrival to the emergency department, CT scan of the chest and abdomen showed evidence of a compression fracture of T9 and T10 and also some rib fractures on the left side. Due to need for pain control patient will be ad mitted to the hospital for further management. Admission Exam (Per Admitting) Constitutional The patient is awake, alert and oriented 3, well developed and well nourished, normocephalic and atraumatic, lying in bed and in no acute distress. HEENT--PERRL, EOMI, mucous membranes and oropharynx mildly dry Neck--supple. No JVD. No bruits. Thyroid normal, trachea midline, no adenopathy. Heart--normal S1 and S2. No murmurs, rubs or gallops. Lungs--clear bilaterally, no respiratory distress, no accessory muscle use. Abdomen--normal bowel sounds and soft. Extremities--no cyanosis or clubbing. No edema. Dermatologic--normal skin turgor, normal color, no abnormal lymph nodes, no rash. Neurologic--cranial nerves II through XII grossly intact. Rheumatologic--normal range of motion. Psychiatric--normal affect. Discharge Data Consultations 03/17/25 14:17 ED Decision to Admit Stat 03/17/25 17:54 Consult Orthopedic Spine Surgery Routine Hospital Course (1) Fall: (2) Wedge compression fracture of T9-T10 vertebra, initial encounter for closed fracture: (3) Malignant neoplasm of upper-outer quadrant of right breast in female, estrogen receptor positive: (4) Diabetes mellitus: (5) Hypertension: Plan Patient has a history of neuropathy following chemotherapy and radiation therapy from her breast cancer treatment. Presents to the hospital following a mechanical fall. 1. 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 Breast cancer: Status post chemoradiation therapy Estrogen sensitive Continue letrozole 3. Hypertension: Blood pressure is under good control At home on lisinopril and hydrochlorothiazide Continue. 4. Type 2 diabetes: Blood glucose under good control On metformin at home, hold Start insulin sliding scale Full code DVT prophylaxis Lovenox Coding Level of Care Code 69983 INP/OBS DISCH >30 MIN Diagnoses Fall W19.XXXA Wedge compression fracture of T9-T10 vertebra, initial encounter for closed fracture S22.070A Malignant neoplasm of upper-outer quadrant of right breast in female, estrogen receptor positive C50.411; Z17.0 Diabetes mellitus E11.9 Hypertension I10 Time Spent (min) 35
== END 2025-03-18 10:40 | disposition home or self-care (01) | DRG 543 ==
LOC: ED 12:24 → INTOOBSV 14:22 → EDINP 14:22 → 3N 17:54